=== PATIENT | female | born 1950 | race Caucasian/White ===

== ENCOUNTER 2023-08-20 17:43 | Observation (INO) ==
[2023-08-20] MEDS ORDERED: NovoLIN R (or HumuLIN R) SUBCUT PRN (17:59)
[2023-08-20] MEDS ORDERED: ZOFRAN INJ 4 MG VIAL IVP PRN (17:59)
[2023-08-20] MEDS ORDERED: NS 1,000 ML IV 1,000 ML IV SCH (18:00)
--- NOTE | 2023-08-20 18:12 | DR.H&P ---
H&P - History & Physical for Day of: H&P Date: 08/20/23 - Chief Complaint Chief Complaint: SOB, WEAKNESS - History of Present Illness History of Present Illness: PT IS 73F, DIRECT ADMIT WITH CO INCREASED SOB, WORSE ON EXERTION AND HEART RATE RUNNING LOW. PT HAS BEEN UNDER THE CARE OF DR CLEANING, CARDIOLOGY, WITH RECENT HOLTER MONITOR RESULTS PENDING. DR CLEANING WAS NOTIFIED BY RUBEN REID NP AND THEY DISCUSSED TRANSFER TO [facility] FOR POSSIBLE PACEMAKER PLACEMENT. PT HAS PMH OF HTN, DM, OA, DENIZ, GERD AND MDD. PT DENIES ANY FEVER OR FLU LIKE SYMPTOMS. - Past Medical History Past Medical History: Anxiety, Arthritis, Depression, Diabetes, GERD, Hypertension - Past Surgical History Additional Surgical History: CATARACT - Social History Does patient currently use any type of tobacco product: No Have you used tobacco products in the last 12 months: No Type of Tobacco Use: None Does any household member use tobacco: No Alcohol Use: None Drug Use: None Risks, benefits, and alternatives of opioids discussed: No - Review of Systems Constitutional: Weakness, Malaise Eyes: No Symptoms Reported ENT: No Symptoms Reported Respiratory: Shortness of Breath, SOB with Excertion Cardiovascular: Palpitations, Light Headedness Gastrointestinal: Nausea, Abdominal Pain Genitourinary: No Symptoms Reported Musculoskeletal: No Symptoms Reported Skin: No Symptoms Reported Neurological: Weakness Oriented: Normal Eyes: Normal Ear: Normal Nose: Normal Throat: Normal Respiratory: RLL Diminished, LLL Diminished Cardiovascular: Normal : Normal Auscultation: Bowel Sounds: Normal Palpation: Normal Tenderness: Epigastric, Mild Skin: Normal Musculoskeletal: Normal Psychiatric: Anxiety Affect: Anxious Speech Pattern: Clear, Appropriate - Assessment/Plan (1) Bradycardia Status: Acute Plan: ADMIT, ICU. SERIAL CE AND EKG. SUPPLEMENTAL O2. CXR ON ADMISSION, BP CONTROL. VERIFY HOME MEDICATIONS, ADMISSION LABS INCLUDING MAG, CBC CMP. IRON, OCCULT STOOL AND BNP. NPO AFTER MIDNIGHT, BS CONTROL WITH SLIDING SCALE ONLY. (2) ARREOLA (dyspnea on exertion) Status: Acute (3) Hypertension Status: Acute (4) Diabetes Status: Acute (5) DENZI (generalized anxiety disorder) Status: Acute - Allergies Allergies/Adverse Reactions: Allergies Allergy/AdvReac Type Severity Reaction Status Date / Time No Known Drug Allergies Allergy Verified 10/22/22 07:31
--- NOTE | 2023-08-20 19:27 | RAD ---
EXAM:CHEST, 1 VIEWHISTORY:sob bradycardia;COMPARISON:None.TECHNIQUE:2 frontal views of the chest were obtained.FINDINGS:The heart is not enlarged. There is increased density to the left lung base. There is no pneumothorax. The osseous structures are intact.IMPRESSION:Query left lung base infiltrate.THIS IS AN ELECTRONICALLY VERIFIED FINAL [id number]/2023 7:16 PM - Electronically signed by Lorene Sloan MD
[2023-08-20] MEDS ORDERED: SNACK - Diabetic Appropriate PO SCH (20:00)
[2023-08-20 20:11] LABS: BASOPHILS # (AUTO) 0.1 X10^3/uL (0.0-0.1); EOSINOPHILS # (AUTO) 0.1 x10^3/uL (0.0-0.2); HEMOGLOBIN 14.1 g/dL (12.0-16.0); LYMPHOCYTES # (AUTO) 3.3 X10^3/uL (1.3-2.9); LYMPHOCYTES % (AUTO) 38.9 % (21.0-51.0); MEAN CORPUSCULAR HEMOGLOBIN 28.5 pg (27.0-34.0); MEAN CORPUSCULAR HGB CONC 32.1 g/dL (33.0-35.0); MEAN CORPUSCULAR VOLUME 88.7 fL (80.0-100.0); MEAN PLATELET VOLUME 8.9 fL (7.4-11.0); MONOCYTES # (AUTO) 0.6 x10^3/uL (0.3-0.8); MONOCYTES % (AUTO) 6.6 % (0.0-13.0); NEUTROPHILS # (AUTO) 4.5 x10^3/uL (2.2-4.8); NEUTROPHILS % (AUTO) 52.5 % (42.0-75.0); PLATELET COUNT 254 X10^3/uL (150.0-450.0); RED BLOOD COUNT 4.96 X10^6/uL (3.5-5.4); RED CELL DISTRIBUTION WIDTH 16.1 % (11.6-16.5); WHITE BLOOD COUNT 8.5 X10^3/uL (3.6-10.0)
--- NOTE | 2023-08-20 20:20 | EKG ---
Test Reason : Near Syncope, AFIB wkth RVR Blood Pressure : */* mmHG Vent. Rate : 54 BPM Atrial Rate : 54 BPM P-R Int : 150 ms QRS Dur : 90 ms QT Int : 440 ms P-R-T Axes : 54 36 52 degrees QTc Int : 417 ms Sinus bradycardia rsr' v1 Low voltage QRS Cannot rule out Anterior infarct , age undetermined Abnormal ECG No previous ECGs available Confirmed by Stanley Emery MD ([id number]) on 08/21/2023 7:34:00 AM Referred By: Confirmed By: Stanley Emery MD
[2023-08-20 20:24] VITALS: BMI 46.4
[2023-08-20 20:34] LABS: ALANINE AMINOTRANSFERASE 9 Units/L (12-78); ALBUMIN 2.8 g/dL (3.4-5.0); ALKALINE PHOSPHATASE 80 Units/L (46-116); ASPARTATE AMINO TRANSFERASE 9 Units/L (15-37); BLOOD UREA NITROGEN 16 mg/dL (7-18); CARBON DIOXIDE 33.3 mmol/L (21-32); CHLORIDE 105 mmol/L (98-107); COR NA(FOR HYPERGLY) 145 mmol/L (136-145); CREATININE 1.13 mg/dL (0.55-1.02); GLUCOSE 122 mg/dL (65-99); MAGNESIUM 1.9 mg/dL (2.0-2.9); POTASSIUM 3.3 mmol/L (3.5-5.1); SODIUM 144 mmol/L (136-145); TOTAL PROTEIN 6.9 g/dL (6.4-8.2); eGFR NON BLACK RACES 50 (>60)
[2023-08-20] MEDS ORDERED: CONSULT PHARMACY - POTASSIUM & MAGNESIUM XX SCH (21:00)
[2023-08-20] MEDS: PROTONIX INJ 40 MG VIAL IVP SCH (21:03)
[2023-08-20] MEDS: CARAFATE ORAL SUSP PO SCH (21:03)
[2023-08-20] MEDS ORDERED: CATAPRES TAB 0.1 MG PO ONE (21:13)
[2023-08-20] MEDS: MAG-OX TAB PO SCH ×2 (21:21→22:29)
[2023-08-20] MEDS: K-DUR TAB 20 MEQ PO SCH ×2 (21:24→22:29)
--- NOTE | 2023-08-21 00:15 | EKG ---
Test Reason : SOB, bradycardia Blood Pressure : */* mmHG Vent. Rate : 48 BPM Atrial Rate : 48 BPM P-R Int : 178 ms QRS Dur : 88 ms QT Int : 470 ms P-R-T Axes : 61 38 56 degrees QTc Int : 419 ms Sinus bradycardia Low voltage QRS Borderline ECG When compared with ECG of 20-AUG-2023 20:07, (Unconfirmed) No significant change was found Confirmed by Stanley Emery MD ([id number]) on 08/21/2023 7:38:41 AM Referred By: Confirmed By: Stanley Emery MD
[2023-08-21 05:36] LABS: BASOPHILS % (AUTO) 0.6 % (0.2-1.0); EOSINOPHILS # (AUTO) 0.1 x10^3/uL (0.0-0.2); EOSINOPHILS % (AUTO) 1.9 % (0.9-2.9); HEMATOCRIT 40.1 % (36.0-47.0); HEMOGLOBIN 12.9 g/dL (12.0-16.0); LYMPHOCYTES # (AUTO) 3.4 X10^3/uL (1.3-2.9); LYMPHOCYTES % (AUTO) 45.2 % (21.0-51.0); MEAN CORPUSCULAR HEMOGLOBIN 28.4 pg (27.0-34.0); MEAN CORPUSCULAR HGB CONC 32.1 g/dL (33.0-35.0); MEAN CORPUSCULAR VOLUME 88.3 fL (80.0-100.0); MEAN PLATELET VOLUME 9.5 fL (7.4-11.0); MONOCYTES # (AUTO) 0.7 x10^3/uL (0.3-0.8); MONOCYTES % (AUTO) 9.6 % (0.0-13.0); NEUTROPHILS # (AUTO) 3.2 x10^3/uL (2.2-4.8); NEUTROPHILS % (AUTO) 42.7 % (42.0-75.0); PLATELET COUNT 238 X10^3/uL (150.0-450.0); RED BLOOD COUNT 4.55 X10^6/uL (3.5-5.4); RED CELL DISTRIBUTION WIDTH 16.4 % (11.6-16.5); WHITE BLOOD COUNT 7.6 X10^3/uL (3.6-10.0)
--- NOTE | 2023-08-21 05:49 | EKG ---
Test Reason : SOB, BRADYCARDIA Blood Pressure : */* mmHG Vent. Rate : 43 BPM Atrial Rate : 43 BPM P-R Int : 198 ms QRS Dur : 86 ms QT Int : 490 ms P-R-T Axes : 56 36 58 degrees QTc Int : 414 ms Marked sinus bradycardia with premature atrial complexes in a pattern of bigeminy Low voltage QRS Abnormal ECG When compared with ECG of 21-AUG-2023 00:02, (Unconfirmed) premature atrial complexes are now present Confirmed by Stanley Emery MD ([id number]) on 08/21/2023 7:40:44 AM Referred By: Confirmed By: Stanley Emery MD
[2023-08-21 05:55] LABS: ALANINE AMINOTRANSFERASE 9 Units/L (12-78); ALBUMIN 2.4 g/dL (3.4-5.0); ALKALINE PHOSPHATASE 70 Units/L (46-116); ASPARTATE AMINO TRANSFERASE 11 Units/L (15-37); BLOOD UREA NITROGEN 16 mg/dL (7-18); CARBON DIOXIDE 33.3 mmol/L (21-32); CHLORIDE 108 mmol/L (98-107); COR CA(FOR HYPOALB) 9.3 mg/dL (8.5-10.1); COR NA(FOR HYPERGLY) 146 mmol/L (136-145); CREATINE KINASE 17 Units/L (26-192); CREATININE 1.06 mg/dL (0.55-1.02); GLUCOSE 136 mg/dL (65-99); POTASSIUM 3.8 mmol/L (3.5-5.1); SODIUM 145 mmol/L (136-145); TOTAL PROTEIN 6.1 g/dL (6.4-8.2); eGFR NON BLACK RACES 54 (>60)
[2023-08-21] MEDS: CARAFATE ORAL SUSP PO SCH ×2 (05:59→11:30)
[2023-08-21 08:47] VITALS: O2SAT 100
[2023-08-21] MEDS ORDERED: ZESTRIL TAB 10 MG PO SCH (09:00)
[2023-08-21] MEDS ORDERED: LOVENOX INJ 40 MG SYR SC SCH (09:00)
[2023-08-21] MEDS: PROTONIX INJ 40 MG VIAL IVP SCH (09:15)
[2023-08-21 09:32] LABS: BILIRUBIN,URINE 1+ (NEGATIVE); BLOOD/HEMOGLOBIN,URINE NEGATIVE (NEGATIVE); GLUCOSE, URINE NEGATIVE (NEGATIVE); KETONES,URINE NEGATIVE (NEGATIVE); LEUKOCYTE ESTERASE ,URINE NEGATIVE (NEGATIVE); NITRITES,URINE NEGATIVE (NEGATIVE); PROTEIN,URINE 1+ (NEGATIVE); UROBILINOGEN,URINE NORMAL (NORMAL)
[2023-08-21 09:40] LABS: APPEARANCE,URINE CLEAR (CLEAR); BACTERIA,URINE NEGATIVE /HPF (NEGATIVE); COLOR,URINE YELLOW (YELLOW); RBC,URINE 0-2 /HPF (0-3); SQUAMOUS EPITHELIAL CELL,UR RARE /HPF (NEGATIVE)
[2023-08-21 12:30] VITALS: TEMP 97.7
[2023-08-21 16:38] VITALS: BP 147/69; PULSE 48
[2023-08-21 16:40] VITALS: RESP 21
== END 2023-08-21 16:30 | disposition short-term general hospital (02) ==
LOC: ICU
PROVIDERS: ADMIT Internal Medicine; ATTEND Internal Medicine
DX: I10 Essential (primary) hypertension; K21.9 Gastro-esophageal reflux disease without esophagitis; F41.8 Other specified anxiety disorders; E11.65 Type 2 diabetes mellitus with hyperglycemia; Z59.86 Financial insecurity; E83.42 Hypomagnesemia; R00.1 Bradycardia, unspecified; Z91.190 Patient's noncompliance with other medical treatment and regimen due to financial hardship; R94.31 Abnormal electrocardiogram [ECG] [EKG]; R06.02 Shortness of breath; Z73.89 Other problems related to life management difficulty; E87.6 Hypokalemia